=== PATIENT | male | born 1965 | race Caucasian/White ===

== ENCOUNTER 2023-12-14 20:08 | Inpatient (IN) | payer MEDICARE ==
[~2023-12-14 20:08] MED LIST: Iopamidol 612 MG/ML 100 ML Bottle IV PRN; Sodium Chloride 0.9% 100 ML IV SCH
[2023-12-14] MEDS ORDERED: Sodium Chloride 0.9% 10 ML Syringe FLUSH PRN (20:16)
[2023-12-14 20:37] LABS: BASOPHILS ABSOLUTE AUTO 0.08 K/uL (0.00-0.10); BASOPHILS PERCENT AUTO 0.4 % (0.1-1.3); EOSINOPHILS ABSOLUTE AUTO 0.03 K/uL (0.00-0.40); EOSINOPHILS PERCENT AUTO 0.1 % (0.0-5.4); HEMATOCRIT 41.8 % (38.4-49.7); HEMOGLOBIN 13.8 g/dL (12.9-16.9); IMMATURE GRAN ABSOLUTE AUTO 0.19 K/uL (0.00-0.23); IMMATURE GRAN PERCENT AUTO 0.8 % (0.0-0.7); LYMPHOCYTES ABSOLUTE AUTO 1.07 K/uL (0.8-3.3); LYMPHOCYTES PERCENT AUTO 4.8 % (11.4-47.7); MEAN CORPUSCULAR HEMOGLOBIN 25.6 pg (31.6-35.5); MEAN CORPUSCULAR VOLUME 77.4 fL (81.4-99.0); MONOCYTES ABSOLUTE AUTO 0.49 K/uL (0.20-0.90); MONOCYTES PERCENT AUTO 2.2 % (3.3-12.6); NEUTROPHILS PERCENT AUTO 91.7 % (40.0-78.1); PLATELET COUNT,PLT 484 K/uL (130-375); WHITE BLOOD CELL COUNT,WBC 22.5 K/uL (3.2-11.0)
[2023-12-14 20:57] LABS: INR 1.2; PROTHROMBIN TIME 12.6 sec (9.2-10.6); PTT,PARTIAL THROMBOPLSTIN TIME 37.1 sec (21.8-27.3)
[2023-12-14 20:59] LABS: A/G RATIO 0.4 (1.2-2.2); ALANINE AMINOTRANSFERASE,ALT 43 U/L (12-78); ALBUMIN 2.4 g/dL (3.4-5.0); ALKALINE PHOSPHATASE 244 U/L (46-116); ASPARTATE AMNIOTRANSFERASE,AST 28 U/L (15-37); BILIRUBIN TOTAL 0.6 mg/dL (0.2-1.0); BLOOD UREA NITROGEN,BUN 10 mg/dL (7-18); CALCIUM 8.4 mg/dL (8.5-10.1); CARBON DIOXIDE,CO2 23 mmol/L (21-32); CHLORIDE,CL 96 mmol/L (100-108); CREATININE 1.2 mg/dL (0.8-1.3); EST CRCL DRUG DOSING (CG) 68.74 mL/min; ESTIMATED GFR 71 mL/min (>60); GLUCOSE RANDOM 123 mg/dL (74-106); POTASSIUM,K 4.3 mmol/L (3.6-5.2); SODIUM,NA 131 mmol/L (140-148)
[2023-12-14 21:00] LABS: ANION GAP 16.3 mmol/L (5.0-14.0)
[2023-12-14 21:01] LABS: LACTIC ACID 2.6 mmol/L (0.4-2.0)
[2023-12-14] MEDS: Sodium Chloride 0.9% 1,000 ML IV ONE ×2 (21:01→22:19)
[2023-12-14] MEDS: Iopamidol 612 MG/ML 100 ML Bottle IV SCH (22:29)
[2023-12-14] MEDS: Sodium Chloride 0.9% 100 ML IV SCH (22:29)
[2023-12-14] MEDS: Sodium Chloride 0.9% 10 ML Syringe FLUSH PRN (22:29)
[2023-12-14 23:25] LABS: APPEARANCE,URINE CLEAR (CLEAR); BILIRUBIN,URINE NEGATIVE (NEGATIVE); COLOR,URINE YELLOW (YELLOW); GLUCOSE,URINE NEGATIVE (NEGATIVE); KETONES,URINE 15 mg/dL (NEGATIVE); LEUKOCYTE ESTERASE,URINE NEGATIVE (NEGATIVE); NITRITE,URINE NEGATIVE (NEGATIVE); OCCULT BLOOD,URINE NEGATIVE (NEGATIVE); PH,URINE 5.5 (5.0-8.0); PROTEIN,URINE TRACE mg/dL (NEGATIVE); UROBILINOGEN,URINE 0.2 EU/dL (0.2-1.0)
[2023-12-14 23:35] LABS: AMORPHOUS SEDIMENT,URINE NOT SEEN; BACTERIA,URINE FEW; EPITHELIAL CELLS,URINE RARE; MUCUS,URINE NOT SEEN; RBC,URINE 0-5 (0-5); WBC,URINE 0-5 (0-5)
[2023-12-15] MEDS: cefTRIAXone 1 GM in Sodium Chloride 0.9% 50 ML IV ONE (00:02)
[2023-12-15] MEDS: Acetaminophen 500 MG Tab PO ONE (00:27)
[2023-12-15] MEDS: Sodium Chloride 0.9% 1,000 ML IV SCH ×2 (00:36→04:25)
[2023-12-15] MEDS: Azithromycin 500 MG in Sodium Chloride 0.9% 250 ML IV ONE (00:39)
[2023-12-15] MEDS: Ondansetron 4 MG/2 ML SDV IVPUSH ONE (01:09)
[2023-12-15] MEDS: metroNIDAZOLE/Normal Saline 500 MG in Premix Bag 1 BAG IV ONE (02:28)
[2023-12-15] MEDS ORDERED: Albuterol 0.083% 2.5 MG/3 ML Neb Soln NEB PRN (04:00)
[2023-12-15] MEDS ORDERED: Ketorolac 30 MG/ML SDV IVPUSH PRN (04:00)
[2023-12-15] MEDS ORDERED: DICLOFENAC SODIUM TOP PRN (04:00)
[2023-12-15] MEDS ORDERED: HYOSCYAMINE SULFATE 0.125 MG PO PRN (04:00)
[2023-12-15] MEDS ORDERED: Ondansetron 4 MG/2 ML SDV IV PRN (04:00)
[2023-12-15] MEDS ORDERED: Acetaminophen/HYDROcodone 325-5 MG Tab PO PRN (04:00)
[2023-12-15] MEDS ORDERED: Bisacodyl 5 MG Tab PO PRN (04:00)
[2023-12-15] MEDS ORDERED: Albuterol 6.7 GM Inhaler INH PRN ×2 (04:00→05:53)
[2023-12-15] MEDS ORDERED: Docusate Sodium 100 MG Cap PO PRN (04:00)
[2023-12-15] MEDS: Albuterol/Ipratropium 3.0-0.5 MG/3 ML Neb Soln NEB SCH (04:41)
[2023-12-15 05:04] LABS: BASOPHILS ABSOLUTE AUTO 0.06 K/uL (0.00-0.10); BASOPHILS PERCENT AUTO 0.3 % (0.1-1.3); HEMATOCRIT 36.7 % (38.4-49.7); HEMOGLOBIN 12.1 g/dL (12.9-16.9); IMMATURE GRAN ABSOLUTE AUTO 0.19 K/uL (0.00-0.23); IMMATURE GRAN PERCENT AUTO 0.8 % (0.0-0.7); LYMPHOCYTES ABSOLUTE AUTO 1.11 K/uL (0.8-3.3); LYMPHOCYTES PERCENT AUTO 4.8 % (11.4-47.7); MEAN CORPUSCULAR HEMOGLOBIN 25.6 pg (31.6-35.5); MEAN CORPUSCULAR VOLUME 77.8 fL (81.4-99.0); MONOCYTES ABSOLUTE AUTO 0.38 K/uL (0.20-0.90); MONOCYTES PERCENT AUTO 1.6 % (3.3-12.6); NEUTROPHILS ABSOLUTE AUTO 21.52 K/uL (1.0-7.6); NEUTROPHILS PERCENT AUTO 92.5 % (40.0-78.1); PLATELET COUNT,PLT 363 K/uL (130-375); RED BLOOD CELL COUNT 4.72 M/uL (4.14-5.76); WHITE BLOOD CELL COUNT,WBC 23.3 K/uL (3.2-11.0)
[2023-12-15 05:10] LABS: EOSINOPHILS ABSOLUTE AUTO 0.01 K/uL (0.00-0.40)
[2023-12-15 05:19] LABS: CALCIUM 7.6 mg/dL (8.5-10.1); CREATININE 1.2 mg/dL (0.8-1.3); EST CRCL DRUG DOSING (CG) 68.74 mL/min
[2023-12-15] MEDS: Ciprofloxacin in D5W 400 MG in Premix Bag 1 BAG IV SCH (05:48)
[2023-12-15] MEDS ORDERED: Hyoscyamine 0.125 MG Tab.SL SL PRN (05:53)
[2023-12-15] MEDS: Acetaminophen 325 MG Tab PO PRN (05:56)
[2023-12-15] MEDS ORDERED: Allopurinol 100 MG Tab PO SCH (06:00)
[2023-12-15] MEDS: Ondansetron 4 MG Tab.DIS PO PRN (08:13)
[2023-12-15] MEDS: metroNIDAZOLE/Normal Saline 500 MG in Premix Bag 1 BAG IV SCH (08:21)
[2023-12-15] MEDS: Multivitamins with Iron/Calcium/Folic Acid/Minerals Tab PO SCH (08:22)
[2023-12-15] MEDS: Allopurinol 100 MG Tab PO SCH (08:22)
[2023-12-15] MEDS: Enoxaparin 40 MG/0.4 ML Syringe SUBCUT SCH (08:23)
[2023-12-15] MEDS: Cholestyramine/Sucrose Powder 4 GM Packet PO SCH (10:32)
[2023-12-15] MEDS: cefTRIAXone 1 GM in Sodium Chloride 0.9% 50 ML IV SCH (12:00)
[2023-12-15] MEDS ORDERED: methylPREDNISolone Sodium Succinate 40 MG/1 ML SDV IVPUSH SCH (14:30)
[2023-12-15] MEDS: Loperamide 2 MG Cap PO PRN (14:56)
[2023-12-16] MEDS: Sodium Chloride 0.9% 500 ML IV ONE (00:13)
[2023-12-16] MEDS: Sodium Chloride 0.9% 1,000 ML IV SCH (05:24)
[2023-12-16 06:13] LABS: BASOPHILS ABSOLUTE AUTO 0.04 K/uL (0.00-0.10); BASOPHILS PERCENT AUTO 0.4 % (0.1-1.3); EOSINOPHILS ABSOLUTE AUTO 0.17 K/uL (0.00-0.40); EOSINOPHILS PERCENT AUTO 1.8 % (0.0-5.4); HEMOGLOBIN 9.8 g/dL (12.9-16.9); IMMATURE GRAN ABSOLUTE AUTO 0.13 K/uL (0.00-0.23); IMMATURE GRAN PERCENT AUTO 1.4 % (0.0-0.7); LYMPHOCYTES ABSOLUTE AUTO 1.55 K/uL (0.8-3.3); LYMPHOCYTES PERCENT AUTO 16.3 % (11.4-47.7); MEAN CORPUSCULAR HEMOGLOBIN 25.5 pg (31.6-35.5); MEAN CORPUSCULAR HGB CONC 32.7 g/dL (31.6-35.5); MEAN CORPUSCULAR VOLUME 78.1 fL (81.4-99.0); MONOCYTES PERCENT AUTO 4.2 % (3.3-12.6); NEUTROPHILS ABSOLUTE AUTO 7.24 K/uL (1.0-7.6); NEUTROPHILS PERCENT AUTO 75.9 % (40.0-78.1); PLATELET COUNT,PLT 241 K/uL (130-375); RED BLOOD CELL COUNT 3.84 M/uL (4.14-5.76); WHITE BLOOD CELL COUNT,WBC 9.5 K/uL (3.2-11.0)
[2023-12-16 06:33] LABS: CALCIUM 7.5 mg/dL (8.5-10.1); CREATININE 0.8 mg/dL (0.8-1.3); EST CRCL DRUG DOSING (CG) 103.1 mL/min; POTASSIUM,K 3.4 mmol/L (3.6-5.2)
[2023-12-16 06:34] LABS: ANION GAP 13.4 mmol/L (5.0-14.0)
[2023-12-16] MEDS: Potassium Chloride 20 MEQ Tab.ER PO ONE ×2 (08:42→16:15)
[2023-12-17 06:15] LABS: CALCIUM 7.6 mg/dL (8.5-10.1); CREATININE 0.9 mg/dL (0.8-1.3); EST CRCL DRUG DOSING (CG) 91.65 mL/min; POTASSIUM,K 4.5 mmol/L (3.6-5.2)
[2023-12-17 06:22] LABS: ANION GAP 11.5 mmol/L (5.0-14.0)
== END 2023-12-17 14:48 | disposition home or self-care (01) | DRG 387 ==
LOC: JP.ED 20:08 → JP.MS 12-15 01:59
PROVIDERS: ADMIT Nurse Practitioner; ATTEND Hospitalist
DX: A41.9 Sepsis, unspecified organism (principal); K51.20 Ulcerative (chronic) proctitis without complications; R05.1 Acute cough; K51.30 Ulcerative (chronic) rectosigmoiditis without complications; Z88.2 Allergy status to sulfonamides; Z88.5 Allergy status to narcotic agent; Z88.8 Allergy status to other drugs, medicaments and biological substances; Z79.51 Long term (current) use of inhaled steroids; Z79.899 Other long term (current) drug therapy; Z98.890 Other specified postprocedural states; Z87.19 Personal history of other diseases of the digestive system
CPT/HCPCS: 36415 ×2; 71045 ×2; 71260; 74177; 80053; 81001; 83605 ×2; 84145; 85025; 85610; 85730; 86140; 87040 ×2; 87086; 99222; A9270; J0456; J0696; J2405; J3490 ×3; J7030 ×3; J7050; Q9967; U0002; 80048; 83735; 94640; 96361; 96365; 96367; 96375; 99232; 99239; 99285-25; J0744; J1650; J1836; J7040; J7620; Q0162